=== PATIENT | female | born 1990 | race Caucasian/White ===

== ENCOUNTER 2024-03-10 07:32 | Emergency (ER) | payer BC ==
[2024-03-10] MEDS ORDERED: Ketorolac Tromethamine 30 MG (1 mL) VIAL ONE (08:14)
[2024-03-10] MEDS ORDERED: Sodium Chloride 0.9% 1,000 ML ONE (08:14)
[2024-03-10] MEDS ORDERED: Ondansetron PF 4 MG/2 ML Vial ONE (08:14)
[2024-03-10 08:33] LABS: #Basophils 0.1 thou/uL (0.0-0.2); #Lymphocytes 1.5 thou/uL (1.20-3.40); #Monocytes 0.4 thou/uL (0.11-0.59); #Neutrophils 7.8 thou/uL (1.40-6.50); %Basophils 0.6 % (0.0-1.0); %Eosinophils 0.3 % (0.0-10.0); %Lymphocytes 15.1 % (21.0-51.0); %Monocytes 4.2 % (0.0-10.0); %Neutrophils 79.8 % (42.0-75.0); Hematocrit 44.5 % (36.0-47.0); Hemoglobin 14.3 g/dL (12.0-16.0); Mean Corpuscular HGB CONC 32.2 g/dL (32.0-36.0); Mean Corpuscular Hemoglobin 28.9 pg (27.0-31.0); Mean Corpuscular Volume 89.8 fl (78.0-98.0); Mean Platelet Volume 7.1 fL (7.4-10.4); Platelet Count 214 10x3/uL (130-400); RBC Distribution Width 11.6 % (11.5-14.5); Red Blood Cell (RBC) Count 4.95 mill/uL (4.20-5.40); White Blood Cell (WBC) Count 9.8 10x3/uL (4.8-10.8)
[2024-03-10 08:43] LABS: Bilirubin Small (Negative); Blood, Urine Large (Negative); Clarity Cloudy (Clear); Glucose, Urine (Dipstick) Negative (Negative); Ketone, Urine Negative (Negative); Leukocyte Negative (Negative); Nitrite Negative (Negative); Protein, Urine (Dipstick) 30 mg/dL (Neg-Trace); Urobilinogen 0.2 mg/dL (Less than 2)
[2024-03-10 08:45] LABS: Specific Gravity, Urine 1.026 (1.002-1.036)
[2024-03-10 08:46] LABS: Pregnancy Test - Urine (BHCG) Negative (Negative); Pregu Control Background? CLEAR/WHITE (CLR/WHITE); Pregu Control Bar Appear? YES (CONTROL BAR); Specific Gravity 1.026 (1.002-1.036)
[2024-03-10 08:49] LABS: ALT (SGPT) 15 U/L (8-55); AST (SGOT) 13 U/L (5-34); Albumin 4.4 g/dL (3.5-5.0); Alkaline Phosphatase 51 U/L (40-110); Anion Gap 13 mmol/L (10-20); BUN (Urea Nitrogen) 17 mg/dL (7.0-18.7); Bilirubin, Total 0.6 mg/dL (0.2-1.2); Calc. Creatinine Clearance 0 mL/min (70-130); Carbon Dioxide 24 mmol/L (22-29); Chloride 107 mmol/L (98-107); Estimated GFR 90; Globulin 2.6 g/dL (2.4-3.5); Glucose 97 mg/dL (70-105); Lipase 20 U/L (8-78); Potassium 3.7 mmol/L (3.5-5.1); Sodium 140 mmol/L (136-145)
[2024-03-10 08:50] LABS: CAUTI Indications for Culture Pelvic or flank pain
[2024-03-10 08:51] LABS: Bacteria/HPF 1+ HPF (None Seen); RBC/HPF Greater than 50 HPF (0-3); Squamous Epithelial 21-50 HPF (0-3); WBC/HPF None Seen HPF (0-3)
[2024-03-10 08:52] LABS: Urine Culture Reflex No No
[2024-03-10] MEDS ORDERED: Ondansetron ODT 4 MG TAB ONE (09:18)
== END 2024-03-10 10:20 | disposition home or self-care (01) ==
LOC: MADERS 07:32
DX: N20.0 Calculus of kidney (principal)
CPT/HCPCS: 74176; 80053; 81001; 81025; 83690; 85025; 96361; 96374; 96375; J1885; J2405; J7050; Q0162

== ENCOUNTER 2024-03-11 08:16 | Emergency (ER) | payer BC ==
[2024-03-11] MEDS ORDERED: Morphine 4 MG/ML VIAL ONE (08:35)
[2024-03-11] MEDS ORDERED: Ondansetron PF 4 MG/2 ML Vial ONE (08:36)
[2024-03-11] MEDS ORDERED: Sodium Chloride 0.9% 1,000 ML ONE (08:36)
[2024-03-11] MEDS ORDERED: Ketorolac Tromethamine 30 MG (1 mL) VIAL ONE (08:36)
[2024-03-11 08:59] LABS: #Lymphocytes 1.1 thou/uL (1.20-3.40); #Monocytes 0.3 thou/uL (0.11-0.59); #Neutrophils 6.5 thou/uL (1.40-6.50); %Basophils 0.3 % (0.0-1.0); %Eosinophils 0.1 % (0.0-10.0); %Lymphocytes 13.9 % (21.0-51.0); %Monocytes 3.7 % (0.0-10.0); Hematocrit 41.2 % (36.0-47.0); Hemoglobin 13.1 g/dL (12.0-16.0); Mean Corpuscular HGB CONC 31.9 g/dL (32.0-36.0); Mean Corpuscular Hemoglobin 28.5 pg (27.0-31.0); Mean Corpuscular Volume 89.5 fl (78.0-98.0); Mean Platelet Volume 6.8 fL (7.4-10.4); Platelet Count 200 10x3/uL (130-400); RBC Distribution Width 11.5 % (11.5-14.5); Red Blood Cell (RBC) Count 4.61 mill/uL (4.20-5.40); White Blood Cell (WBC) Count 7.9 10x3/uL (4.8-10.8)
[2024-03-11 09:12] LABS: Anion Gap 11 mmol/L (10-20); BUN (Urea Nitrogen) 14 mg/dL (7.0-18.7); Calc. Creatinine Clearance 0 mL/min (70-130); Calcium 8.8 mg/dL (7.8-10.44); Carbon Dioxide 24 mmol/L (22-29); Chloride 110 mmol/L (98-107); Estimated GFR 65; Glucose 115 mg/dL (70-105); Potassium 3.8 mmol/L (3.5-5.1); Sodium 141 mmol/L (136-145)
[2024-03-11 09:45] LABS: Bilirubin Negative (Negative); Blood, Urine Small (Negative); Clarity Clear (Clear); Glucose, Urine (Dipstick) Negative (Negative); Ketone, Urine Negative (Negative); Leukocyte Negative (Negative); Nitrite Negative (Negative); Protein, Urine (Dipstick) Negative (Neg-Trace); Specific Gravity, Urine 1.015 (1.005-1.030); Urobilinogen 0.2 mg/dL (Less than 2); pH, Urine 6.5 (5.0-9.0)
[2024-03-11 09:52] LABS: Bacteria/HPF Rare-Few HPF (None Seen); CAUTI Indications for Culture Dysuria,urgency,freq; RBC/HPF 0-3 HPF (0-3); WBC/HPF 0-3 HPF (0-3)
[2024-03-11 09:53] LABS: Urine Culture Reflex No No
== END 2024-03-11 10:34 | disposition home or self-care (01) ==
LOC: MADERS 08:16
DX: N23 Unspecified renal colic (principal)
CPT/HCPCS: 80048; 81001; 85025; 96374; 96375; J1885; J2270; J2405; J7050